=== PATIENT | female | born 1985 | race Caucasian/White ===

== ENCOUNTER 2021-10-30 19:05 | Inpatient (IN) | payer MEDICARE, MEDICAID, SELFPAY ==
[2021-10-30 19:18] VITALS: BMI 30.8
[2021-10-30 19:37] VITALS: BP 118/69; PULSE 90; TEMP 36.8; O2SAT 100
[2021-10-30] MEDS: 0.9% Saline Lock 10 ML Syringe IV (19:55)
[2021-10-30 20:26] LABS: Absolute Lymphocyte Count 4.12 X10^3/uL (0.83-4.51); Absolute Neutrophil Count 15.3 X10^3/uL (2.0-7.7); Basophil# 0.08 X10^3/uL; Basophil% 0.4 % (0-1); Eosinophils% 0.5 % (0-5); Hematocrit 33.5 % (37-47); Hemoglobin 11.7 g/dL (12.0-15.0); Lymphocyte # 4.12 X10^3/ul (0.83-4.51); Lymphocyte % 19.5 % (19-41); Mean Corp Hgb Conc 34.9 g/dL (32-36); Mean Corpuscular Hgb 33.6 pg (27.0-32.0); Mean Corpuscular Volume 96.3 fL (81-99); Mean Platelet Vol. 13.3 fl (6.2-12.0); Monocyte# 1.22 X10^3/uL; Monocyte% 5.8 % (0-10); NRBC Flagged by Analyzer 0 % (0-5); Neutrophil # 15.31 X10^3/uL (2.7-7.7); Neutrophil % 72.4 % (47-70); POSITIVE MORPHOLOGY YES; Platelet Count 282 K/mm3 (150-450); RBC Distribution Width CV 14.4 % (11.6-14.6); RBC Distribution Width SD 50.6 fl (35.1-43.9); Red Blood Count 3.48 M/mm3 (4.2-5.4); White Blood Count 21.1 K/mm3 (4.4-11.0)
[2021-10-30 20:31] LABS: Differential Indicated SCAN CRITERIA MET
[2021-10-30] MEDS: Lactated Ringers 1,000 ML 50 ML IV (20:40)
[2021-10-30] MEDS: Lactated Ringers 500 ML 999 ML IV (20:40)
[2021-10-30] MEDS: miSOPROStol 25 MCG TABLET VAGINAL (21:01)
[2021-10-30 21:03] LABS: Anisocytosis 1+; Atypical Lymphocyte 1+ %; Macrocytosis 1+; Platelet Estimate ADEQUATE (ADEQ); Red Cell Morphology N CHROM NORMAL (NORM C&C)
[2021-10-31] VITALS (72 sets, daily range): BP systolic 101–143; BP diastolic 56–81; PULSE 65–254; TEMP 36.1–37.2; O2SAT 80–100
[2021-10-31] MEDS: Acetaminophen 500 MG Tablet PO ×2 (00:40→08:58)
[2021-10-31] MEDS: Lactated Ringers 500 ML 999 ML IV ×2 (00:44→15:04)
[2021-10-31] MEDS: 0.9% Saline Lock 10 ML Syringe IV ×2 (08:59→13:30)
[2021-10-31] MEDS: 0.9% Normal Saline Single 100 ML IV.SOLN. INTRA-UTER ×2 (09:04→09:12)
[2021-10-31] MEDS: fentaNYL 100 MCG/2 ML Ampul IV ×2 (10:40→13:43)
--- NOTE | 2021-10-31 13:18 | PCM.HP.OB ---
HPI - General General Date of Admission: 10/30/21 HPI Narrative SVETLANA SALAZAR, is a 36 F who presents for scheduled IOL. Doing well. Maternal Data Information MONE Calculator Estimated Delivery Date Method Current WG Current Estimate 11/06/21 Ultrasound #1 39w 1d PFSH PFS Medical History (Updated 10/31/21 @ 21:[address] Estela Ghosh, DO) Anxiety Depression Shoulder joint dislocation Home Medications aspirin [Aspir-81] 81 mg PO DAILY 10/30/21 [History Last Taken 10/30/21 10:30] duloxetine 30 mg PO DAILY 10/30/21 [History Last Taken 10/30/21 10:30] [id number] [] 1 tab PO DAILY 10/30/21 [History Last Taken 10/29/21 22:00] Allergy/AdvReac Type Severity Reaction Status Date / Time acetaminophen Allergy Hives Verified 10/30/21 19:39 [From Darvocet-N] amoxicillin [From Trimox] Allergy Hives Verified 10/30/21 19:39 cefaclor [From Ceclor] Allergy Pain in Verified 10/30/21 19:39 joints codeine Allergy Hives Verified 10/30/21 19:39 [From Tylenol-Codeine #3] hydrocodone [From Vicodin] Allergy Hives Verified 10/30/21 19:39 propoxyphene Allergy Hives Verified 10/30/21 19:39 [From Darvocet-N] sulfamethoxazole Allergy Hives Verified 10/30/21 19:39 [From Bactrim] trimethoprim [From Bactrim] Allergy Hives Verified 10/30/21 19:39 Social History Smoking Status: Light Smoker (<10/day) History Elective abortions Hx Para 0 Spontaneous abortions Hx # Term Pregnancies Ectopic pregnancies Hx # Pregnancies Multiple births # of living children NST FHR Rate Baby A FHR Category:: Category II Vital Signs Vital Signs Vital Signs: 10/30/21 19:37 10/31/21 01:25 10/31/21 04:49 Temperature 98.2 F 97.0 F L 97.8 F Temperature Source Temporal Temporal Temporal Pulse Rate 90 80 65 Blood Pressure 118/69 143/68 H 114/66 BP Systolic 118 143 114 BP Diastolic 69 68 66 Pulse Ox 100 98 97 10/31/21 07:29 10/31/21 09:07 10/31/21 10:57 Temperature 97.7 F L Temperature Source Temporal Pulse Rate 83 68 Blood Pressure 121/76 H 106/56 L BP Systolic 121 106 BP Diastolic 76 56 Pulse Ox 80 10/31/21 11:01 Temperature 97.8 F Temperature Source Temporal Pulse Rate Blood Pressure BP Systolic BP Diastolic Pulse Ox Weight Weight: 173 lb 15.115 oz Body Mass Index (BMI) 30.8 Labs Labs Labs: Blood Type A POSITIVE Antibody Screen NEGATIVE Hct 33.5 % (37-47) L Hgb 11.7 g/dL (12.0-15.0) L Assessment & Plan (1) 39 weeks gestation of : PLAN: - Admit for scheduled IOL - Routine intrapartum care - Received 1 dose of Cytotec followed by intracervical schofield and pitocin gtt - Epidural for pain control - Ruptured for clear fluid on placement of schofield - EFW expected to be < 4500 g and pelvis adequate - Anticipate vaginal delivery (2) Advanced maternal age (AMA) in : (3) Late care: (4) History of anxiety: (5) Tobacco use: (6) COVID-19 affecting , antepartum:
[2021-10-31] MEDS: Oxytocin 30 units/NS 500 ml 30 UNITS/500 ML IV.SOLN IV (13:26)
[2021-10-31 13:52] LABS: Pathologist Review Reviewed
[2021-10-31] MEDS: fentaNYL 100 MCG/2 ML Ampul 25 MCG IV (17:05)
[2021-10-31] MEDS: fentaNYL-bupivacaine (epidural) 100 ML BAG EPIDURAL ×2 (17:18→21:54)
[2021-10-31] MEDS: Lactated Ringers 1,000 ML 200 ML IV (18:20)
--- NOTE | 2021-10-31 21:16 | PCM.PN.BLA ---
Progress Note At bedside to check on pt. Cvx /-2. IUPC in [address]. Continue to titrate pitocin. Has been 6 cm for 2 hours with inadequate ctx's on pitocin. Comfortable with epidural.
[2021-10-31] MEDS: Ondansetron 4 MG/2 ML Vial IV (21:45)
[2021-10-31] MEDS: Oxytocin 30 units/NS 500 ml 30 UNITS/500 ML IV.SOLN 334 UNITS IV (22:26)
--- NOTE | 2021-10-31 22:54 | PCM.OPRPT ---
Problems Associated Problem List Diagnoses (1) COVID-19 affecting , antepartum: (2) Tobacco use: (3) History of anxiety: (4) Late care: (5) Advanced maternal age (AMA) in : (6) 39 weeks gestation of : (7) Vaginal delivery: Report of Operation Date of Procedure: 10/31/21 Pre-Operative Diagnosis: 39 week gestation, AMA, tobacco use, anxiety disorder, Covid infection during Post-Operative Diagnosis: As above Surgery/Procedure Performed:: Description of Surgical Findings:: delivered in NO position. Clear fluid. Normal uterine cavity on exploration. Surgeon: Augie Type of Anesthesia: Epidural Special Medications: None Specimen's removed: Placenta Drains: Landrum Estimated Blood Loss (mL): 100 Fluids Replaced: See anesthesia records Description of Procedure: The patient was scheduled for a 39-week induction. She was given 1 dose of Cytotec. A Landrum was then placed and she was ruptured for clear fluid upon placement of the Landrum. She progressed with Pitocin. She pushed for about 4-5 contractions total. The patient was complete and pushing. The head of the infant was delivered in left occiput anterior position. The anterior shoulder was easily delivered, followed by the posterior shoulder and body of the infant without any force or delay. A viable female infant was delivered atraumatically and placed on the maternal abdomen. Apgars were 6, 8. The cord was clamped and cut after a 60 sec delay by the patient's mother. Cord gases were obtained. The placenta was delivered with fundal massage and noted to be normal-appearing and intact with a three-vessel cord. The uterus was explored x1. A second-degree perineal laceration was repaired in usual fashion with 3-0 Vicryl. Fundus was firm and bleeding was hemostatic. Vaginal sweep was performed. Instrument, sponge, needle counts were correct. Grafts/Implants Used: None Complications None Admit VTE Documentation VTE Present on Admission: No
[2021-11-01] VITALS (19 sets, daily range): BP systolic 99–111; BP diastolic 58–71; PULSE 66–100; RESP 16–18; TEMP 36.6–36.9; O2SAT 97–100
[2021-11-01] MEDS: Benzocaine/Lanolin/Aloe Vera 1 SPRAY EACH TOPICAL (01:02)
[2021-11-01] MEDS: 0.9% Saline Lock 10 ML Syringe IV (01:02)
--- NOTE | 2021-11-01 01:54 | NURSING ---
report given to lwaniyah RN. that rn to assume care of pt at this time.
[2021-11-01] MEDS: Ibuprofen 600 MG Tablet PO ×4 (03:29→22:35)
--- NOTE | 2021-11-01 08:18 | PCM.PN.OB ---
Subjective Subjective Patient seen at bedside. Feeling good. Ambulating and voiding without difficulty. Breast feeding with minimal support. Lochia minimal. May want to be discharged home tonight at 24 hours. Objective Data Objective Data Vital Signs: Vital Signs Temp Pulse Resp BP Pulse Ox 98.0 F 67 18 109/62 97 11/01/21 07:58 11/01/21 07:58 11/01/21 07:58 11/01/21 07:58 11/01/21 07:58 Oxygen Delivery Method Room Air Weight: 173 lb 15.115 oz Body Mass Index (BMI) 30.8 Intake & Output: Intake and Output for Last 24 Hours 10/30/21 10/31/21 11/01/21 23:59 23:59 23:59 Intake Total 540.83 / 540.83 4472.48 / 4472.48 833 / 833 Output Total 1600 / 1600 Balance 540.83 / 540.83 4472.48 / 4472.48 -767 / -767 Lab / Micro Data Result Diagrams: 10/30/21 19:50 Labs: Laboratory Results - last 24 hr 10/30/21 19:50: Diff Path Review Reviewed Micro: Microbiology 10/30/21 20:10 Nasal Secretion SARS-CoV-2 Antigen (Rapid) - Final Physical Exam Const alert and no apparent distress General Appearance: cooperative and comfortable Exam Limitations: no limitations HEENT normocephalic Eyes General Eye: normal appearance of both eyes Neck full ROM General: normal visual inspection Chest Chest: symmetrical chest wall rise Resp normal respiratory effort and normal air movement Effort and Inspection: symmetric chest movement Auscultation: clear to auscultation bilaterally Cardio regular rate and regular rhythm GI normal to inspection, nondistended, normoactive bowel sounds Back/Spine normal ROM Extremity full ROM and no calf tenderness General Extremity: normal exam except as noted Skin no rashes or lesions noted Neuro CN's II-XII intact bilaterally Psych mental status grossly normal Assessment & Plan (1) Vaginal delivery: (2) Tobacco use: (3) History of anxiety: (4) Laceration, obstetrical, second degree: (5) Care and examination of lactating mother: PLAN: PPD 1 Routine care support Anticipate discharge home later tonight or tomorrow morning
[2021-11-01] MEDS: Acetaminophen 500 MG Tablet 1000 MG PO ×2 (13:06→20:16)
--- NOTE | 2021-11-01 18:24 | PCM.DC ---
Discharge Instructions Diet Discharge Diet: No restrictions Activity May resume sexual activity in: 6-8 weeks Weight Bearing Status: Weight bearing as tolerated Dressing / Incision Call your doctor if you observe: Fever of 101 or Higher, Inability to urinate, Using more than 1 pad per hour, Shortness of breath, Chest pain, Calf discomfort and Uncontrolled pain Follow Up Care Please Follow Up With: Mariya Rodriguez CNM When: 2 weeks virtual visit/ 6 weeks in office Test Results: Test results from this visit will be discussed in further detail at your follow-up appointment, if applicable. Discharge Plan Admission Admit Date/Time: 10/30/21 19:05 Primary Reason for Your Visit: Labor and delivery Attending Provider: Estela Ghosh Discharge Orders/Prescriptions Prescriptions: Continued [id number] 1 mg Tablet 1 tab PO DAILY RF: 0 duloxetine 30 mg Capsule,Delayed Release(Dr/Ec) 30 mg PO DAILY RF: 0 Discontinued aspirin [Aspir-81] 81 mg Tablet,Delayed Release (Dr/Ec) 81 mg PO DAILY RF: 0 Referrals / Follow Up: KASEY PERDOMO [Other] Disposition Disposition (needs filled in before D/C Order can be placed): Home, Self Care
== END 2021-11-01 23:00 | disposition home or self-care (01) | DRG 807 ==
PROVIDERS: Obstetrics & Gynecology; Admitting Provider Obstetrics & Gynecology; Visit Provider Obstetrics & Gynecology
DX: O99.334 Smoking (tobacco) complicating childbirth (principal); Z37.0 Single live birth; F17.200 Nicotine dependence, unspecified, uncomplicated; Z3A.39 39 weeks gestation of pregnancy; O70.1 Second degree perineal laceration during delivery; Z79.82 Long term (current) use of aspirin; Z86.16 Personal history of COVID-19
CPT/HCPCS: 59025; 59050; 85025; 86850; 86900; 86901; 87426; 99218; 99406; J7040; J7120; A4216; G0378; J2405; J3490